=== PATIENT | female | born 1950 | race Caucasian/White ===

== ENCOUNTER 2016-10-05 07:56 | Emergency (ER) | payer OTHER ==
[~2016-10-05] VITALS: Ht 177.8 cm; Wt 61.2 kg
[2016-10-05 07:56] VITALS: BP_SYST 153
[~2016-10-05 07:56] MED LIST: LISI10TA5 PO
--- NOTE | 2016-10-05 07:56 | NUR ---
BROUGHT BACK TO BED #8 AND TRIAGED. WILL ASSUME CARE
--- NOTE | 2016-10-05 08:01 | NUR ---
DR MADDEN AT BEDSIDE FOR EVALUATION
--- NOTE | 2016-10-05 08:07 | NUR ---
PT DECIDED TO HOLD OFF ON ANY NARCOTICS OR ZOFRAN AT THIS TIME. DR MADDEN NOTIFIED.
[2016-10-05] MEDS ORDERED: NACL 0.9% 1,000 ML IV ONE (08:20)
[2016-10-05 08:31] LABS: BASOPHILS % (AUTO) 0.7 % (0.0-2.0); EOSINOPHILS # (AUTO) 0.2 K/uL (0.0-0.4); EOSINOPHILS % (AUTO) 2.6 % (0.0-4.0); HEMATOCRIT 40.9 % (36-48); HEMOGLOBIN 13.5 g/dL (12.0-16.0); LYMPHOCYTES # (AUTO) 2.7 K/uL (1.0-5.5); LYMPHOCYTES % (AUTO) 37.9 % (20.5-51.5); MEAN CORPUSCULAR HEMOGLOBIN 30 pg (27-31); MEAN CORPUSCULAR HGB CONC 33 % (32-36); MEAN CORPUSCULAR VOLUME 90 fL (79.0-98.0); MONOCYTES # (AUTO) 0.8 K/uL (0.0-1.0); MONOCYTES % (AUTO) 10.8 % (1.7-9.3); NEUTROPHILS # (AUTO) 3.4 K/uL (1.8-7.7); PLATELET COUNT (AUTO) 300 K/uL (130-430); RED BLOOD CELL COUNT(AUTO) 4.55 MIL/uL (4.2-6.2); RED CELL DISTRIBUTION WIDTH 12.1 % (9.0-15.0); WHITE BLOOD COUNT (AUTO) 7.1 K/uL (4.8-10.8)
--- NOTE | 2016-10-05 08:32 | NUR ---
CONSENT SIGNED FOR CT WITH CONTRAST.
[2016-10-05 08:50] LABS: INR 0.9 (0.8-1.2)
[2016-10-05 08:52] LABS: CALCIUM 9.2 mg/dL (8.4-11.0); CREATININE 0.74 mg/dL (0.55-1.30); POTASSIUM 3.7 mmol/L (3.5-5.1); TOTAL BILIRUBIN 0.3 mg/dL (0.0-1.0); TOTAL PROTEIN, SERUM 7.9 g/dL (6.4-8.3)
[2016-10-05 09:12] LABS: BILIRUBIN,URINE NEGATIVE (NEGATIVE); CLARITY/URINE CLEAR (CLEAR); COLOR,URINE YELLOW (YELLOW); GLUCOSE,URINE NEGATIVE (NEGATIVE); KETONES,URINE NEGATIVE (NEGATIVE); LEUKOCYTE ESTERASE ,URINE NEGATIVE (NEGATIVE); NITRITE, URINE NEGATIVE (NEGATIVE); PH,URINE 7.5 (5.0-8.0); PROTEIN URINE NEGATIVE (NEGATIVE); UROBILINOGEN,URINE 0.2 (0.2-1.0)
[2016-10-05 09:16] LABS: BLOOD, URINE TRACE (NEGATIVE)
[2016-10-05 09:19] LABS: BACTERIA,URINE FEW /HPF (None Seen); RBC,URINE 0-3 /HPF (0-3); WBC,URINE 0-3 /HPF (0-3)
[2016-10-05 09:20] LABS: MUCUS,URINE None Seen /LPF (None Seen)
[2016-10-05] MEDS ORDERED: IOHEXOL 100 ML IV ONE (09:26)
--- NOTE | 2016-10-05 09:35 | NUR ---
RETURNED FROM RADIOLOGY, PLACED BACK INTO ROOM #8.
--- NOTE | 2016-10-05 10:02 | NUR ---
RESTING QUIETLY, NO CHANGES.
--- NOTE | 2016-10-05 10:29 | NUR ---
DR MADDEN IN TO SPEAK WITH PT RE: TEST RESULTS
[2016-10-05] MEDS ORDERED: NS 500 ML IV ONE ×2 (10:30→10:45)
[2016-10-05 11:15] VITALS: BP_SYST 132
--- NOTE | 2016-10-05 11:15 | NUR ---
Patient given written and verbal discharge instructions and verbalizes understanding. ER MD Dr. wild discussed with patient the results and treatment provided. Patient in stable condition. ID arm band removed. IV catheter removed intact and dressing applied, no active bleeding. Rx of tylenol with codeine given. Patient educated on pain management and to follow up with PMD. Pain Scale 0/10 Opportunity for questions provided and answered.
== END 2016-10-05 11:15 | disposition home or self-care (01) ==
LOC: SED 07:56
DX: K57.90 Diverticulosis of intestine, part unspecified, without perforation or abscess without bleeding (principal); I10 Essential (primary) hypertension
CPT/HCPCS: 36415; 74177; 80048; 80053; 81000; 82150; 83690; 85025; 85610; 85730; 96360; 96361; 99285; J7030; Q9967

== ENCOUNTER 2017-01-28 09:16 | Outpatient (CLI) | payer OTHER ==
[2017-01-28 10:40] LABS: BASOPHILS % (AUTO) 0.5 % (0.0-2.0); EOSINOPHILS # (AUTO) 0.1 K/uL (0.0-0.4); EOSINOPHILS % (AUTO) 1.5 % (0.0-4.0); HEMATOCRIT 45.3 % (36-48); LYMPHOCYTES # (AUTO) 2.4 K/uL (1.0-5.5); LYMPHOCYTES % (AUTO) 41.7 % (20.5-51.5); MEAN CORPUSCULAR HEMOGLOBIN 30 pg (27-31); MEAN CORPUSCULAR HGB CONC 33 % (32-36); MEAN CORPUSCULAR VOLUME 91 fL (79.0-98.0); MONOCYTES # (AUTO) 0.6 K/uL (0.0-1.0); MONOCYTES % (AUTO) 9.9 % (1.7-9.3); NEUTROPHILS # (AUTO) 2.7 K/uL (1.8-7.7); NEUTROPHILS % (AUTO) 46.4 % (40.0-70.0); PLATELET COUNT (AUTO) 223 K/uL (130-430); RED BLOOD CELL COUNT(AUTO) 5.01 MIL/uL (4.2-6.2); RED CELL DISTRIBUTION WIDTH 13.1 % (9.0-15.0); WHITE BLOOD COUNT (AUTO) 5.8 K/uL (4.8-10.8)
[2017-01-28 10:47] LABS: ALBUMIN 4.4 g/dL (3.4-4.8); CREATININE 0.66 mg/dL (0.55-1.30); POTASSIUM 3.6 mmol/L (3.5-5.1); TOTAL BILIRUBIN 0.8 mg/dL (0.0-1.0); TOTAL PROTEIN, SERUM 8.1 g/dL (6.4-8.3)
== END 2017-01-28 18:36 | disposition home or self-care (01) ==
LOC: SLB 09:16
PROVIDERS: ATTEND Family Medicine
DX: Z00.01 Encounter for general adult medical examination with abnormal findings (principal); R79.89 Other specified abnormal findings of blood chemistry
CPT/HCPCS: 36415; 80053; 80061; 82306; 85025

== ENCOUNTER 2017-08-25 08:53 | Outpatient (CLI) | payer OTHER ==
[~2017-08-25 08:53] MED LIST changes: +LATA2.5D6 OP; -LISI10TA5 PO; +LOSA50TA3 PO
== END 2017-08-25 20:16 | disposition home or self-care (01) ==
LOC: SRD 08:53
PROVIDERS: ATTEND Neurological Surgery
DX: S12.000A Unspecified displaced fracture of first cervical vertebra, initial encounter for closed fracture (principal); X58.XXXA Exposure to other specified factors, initial encounter; Y93.89 Activity, other specified; Y92.89 Other specified places as the place of occurrence of the external cause; Y99.8 Other external cause status
CPT/HCPCS: 72040-TC

== ENCOUNTER 2017-10-20 08:55 | Outpatient (CLI) | payer OTHER | END 2017-10-20 20:17 | disposition home or self-care (01) | LOC: SRD 08:55 | PROVIDERS: ATTEND Neurological Surgery | DX: S12.000A Unspecified displaced fracture of first cervical vertebra, initial encounter for closed fracture (principal); M25.78 Osteophyte, vertebrae; X58.XXXA Exposure to other specified factors, initial encounter; Y93.89 Activity, other specified; Y92.89 Other specified places as the place of occurrence of the external cause; Y99.8 Other external cause status | CPT/HCPCS: 72052 ==

== ENCOUNTER 2018-02-16 08:02 | Outpatient (CLI) | payer OTHER ==
[~2018-02-16 08:02] MED LIST changes: -LATA2.5D6 OP; +XALEYE OP
[2018-02-16 09:14] LABS: ALBUMIN 4.3 g/dL (3.4-4.8); CREATININE 0.7 mg/dL (0.55-1.30); POTASSIUM 3.4 mmol/L (3.5-5.1); TOTAL BILIRUBIN 0.8 mg/dL (0.0-1.0)
== END 2018-02-16 21:16 | disposition home or self-care (01) ==
LOC: SLB 08:02
PROVIDERS: ATTEND Family Medicine
DX: I10 Essential (primary) hypertension (principal); E87.1 Hypo-osmolality and hyponatremia
CPT/HCPCS: 36415; 80053; 80061

== ENCOUNTER 2018-03-25 08:30 | Outpatient (CLI) | payer OTHER | END 2018-03-25 17:47 | disposition home or self-care (01) | LOC: SMA 08:30 | PROVIDERS: ATTEND Family Medicine | DX: Z12.31 Encounter for screening mammogram for malignant neoplasm of breast (principal) | CPT/HCPCS: 77067 ==

== ENCOUNTER 2018-06-08 08:27 | Outpatient (CLI) | payer OTHER ==
[2018-06-08 10:11] LABS: ALBUMIN 4.2 g/dL (3.4-4.8); CALCIUM 10.1 mg/dL (8.4-11.0); CREATININE 0.6 mg/dL (0.55-1.30); POTASSIUM 3.4 mmol/L (3.5-5.1); TOTAL BILIRUBIN 0.8 mg/dL (0.0-1.0)
== END 2018-06-08 19:26 | disposition home or self-care (01) ==
LOC: SLB 08:27
PROVIDERS: ATTEND Physician Assistant Medical
DX: E78.5 Hyperlipidemia, unspecified (principal)
CPT/HCPCS: 36415; 80053; 80061

== ENCOUNTER 2019-06-01 10:57 | Outpatient (CLI) | payer OTHER ==
[2017-07-31 12:00] VITALS: BP_SYST 120
== END 2019-06-01 20:00 | disposition home or self-care (01) ==
LOC: SMA 10:57 → EDSTATUS 11:00 → SMA 20:00
PROVIDERS: ATTEND Family Medicine
DX: Z12.31 Encounter for screening mammogram for malignant neoplasm of breast (principal)
CPT/HCPCS: 77067

== ENCOUNTER 2020-06-02 09:53 | Outpatient (CLI) | payer OTHER | END 2020-06-02 20:58 | disposition home or self-care (01) | LOC: SMA 09:53 | PROVIDERS: ATTEND Family Medicine | DX: Z12.31 Encounter for screening mammogram for malignant neoplasm of breast (principal) | CPT/HCPCS: 77067 ==

== ENCOUNTER 2022-03-22 06:19 | Day surgery (SDC) | payer OTHER ==
[~2022-03-22] VITALS: Ht 172.7 cm; Wt 56.7 kg
[2022-03-22] MEDS ORDERED: CEFAZOLIN SOD 2 GM in D5W 50 ML IV ONE (07:00)
[2022-03-22] MEDS ORDERED: KETOROLAC TROMETHAMINE 30 MG VIAL IVP ONE (09:30)
[2022-03-22] MEDS ORDERED: PROPOFOL 200MG/ 20ML VIAL (DIPRIVAN) IV ONE (09:30)
[2022-03-22] MEDS ORDERED: NS IRRIG SOLN 1000 ML IR ONE (09:30)
[2022-03-22] MEDS ORDERED: BUPIVACAINE /PF 0.5% 30 ML VIAL INJ ONE (09:30)
[2022-03-22] MEDS ORDERED: LR 1,000 ML IV.SOLN IV ONE (09:30)
[2022-03-22] MEDS ORDERED: SUCCINYLCHOLINE CHLORIDE 20 MG/ML(QUELICIN) IVP ONE (09:30)
[2022-03-22] MEDS ORDERED: ONDANSETRON HCL 4 MG/2 ML VIAL IVP ONE (09:30)
[2022-03-22] MEDS ORDERED: ROCURONIUM BROMIDE 10 MG/ML (ZEMURON) IV ONE (09:30)
[2022-03-22] MEDS ORDERED: SEVOFLURANE 15 MIN GAS INH ONE (09:30)
[2022-03-22] MEDS ORDERED: CEFAZOLIN 1 GM IVPB PREMIX 50 ML IV ONE (09:36)
[2022-03-22] MEDS ORDERED: HYDROmorphone 1 MG/ML INJ. CARTRIDGE IVP PRN (10:45)
[2022-03-22] MEDS ORDERED: METOCLOPRAMIDE HCL 10 MG/2 ML VIAL IVP PRN (10:45)
[2022-03-22] MEDS ORDERED: MORPHINE 4 MG INJ. 4 MG/ML VIAL IVP PRN (10:45)
[2022-03-22] MEDS ORDERED: KETOROLAC TROMETHAMINE 30 MG VIAL IVP PRN (10:45)
[2022-03-22] MEDS ORDERED: IBUPROFEN 400 MG TABLET PO ONE (10:45)
[2022-03-22] MEDS ORDERED: traMADol HCL HCL 50 MG TABLET (ULTRAM) PO PRN (13:00)
[2022-03-22 15:33] VITALS: BP_SYST 149
== END 2022-03-22 15:25 | disposition home or self-care (01) ==
LOC: SDS 06:19 → SMU 06:21 → SDS 15:25
PROVIDERS: ATTEND Surgery
DX: K40.20 Bilateral inguinal hernia, without obstruction or gangrene, not specified as recurrent (principal); I10 Essential (primary) hypertension; E78.5 Hyperlipidemia, unspecified; Z20.822 Contact with and (suspected) exposure to COVID-19; Z79.899 Other long term (current) drug therapy
CPT/HCPCS: 36415 ×2; 49650; 87426; U0003; C1781; J3490; J0690 ×2; J1885; J2405; J2704; J0330; J7060; J7120; C1727; S2900